=== PATIENT | male | born 1945 | race African-American/Black ===

== ENCOUNTER 2021-09-22 12:53 | Emergency (ER) | payer MEDICARE, MEDICAID ==
[~2021-09-22] VITALS: Ht 165.1 cm; Wt 59.0 kg
[~2021-09-22 12:53] MED LIST: APAP500 PO; ASPIRIN EC81 M1 PO; BACLOFEN 10 MG10 MG PO; BUSPIRONE HCL10 MG PO; CALCITRATE200 MG PO; CALCITRIOL0.25 MCG PO; CARVEDILOL12.5 MG PO; CARVEDILOL25 MG PO; COENZYME Q-1030 MG PO; COLACE 100 MG100 MG PO; FINASTERIDE5 MG PO; FLOMAX0.4 MG PO; IMDUR 30 MG TAB30 M1 PO; LATANOPROST 0.2.5 ML OPHTHALMIC; MULTIVITAMIN WITH PO; NEURONTIN100 MG PO; NITROGLYCERIN0.4 MG SUBLING; NORCO5 PO; NORVASC10 MG PO; PEPCID40 MG PO; RENAL CAPS SOFTG1 MG PO; RISPERDAL 3 MG T3 M1 PO; ROSUVASTATIN CAL5 MG PO; TAMSULOSIN HCL0.4 M1 PER TUBE; TIROSINT100 MCG PO; VELTASSA8.4 GM PO; XANAX 0.25 MG0.25 MG PO; ZANTAC 150MG T150 M1 PO; ZETIA10 MG PO
[2021-09-22 14:33] LABS: ABSOLUTE EOSINOPHILS 0.1 thou/uL (0.0-0.7); ABSOLUTE LYMPHOCYTES 0.9 thou/uL (0.8-5.3); ABSOLUTE MONOCYTES 0.6 thou/uL (0.0-1.2); ABSOLUTE NEUTROPHILS 5.1 thou/uL (1.6-8.1); BASOPHILS 0.7 %; EOSINOPHILS 1.3 %; HEMATOCRIT 23.6 % (42.0-52.0); HEMOGLOBIN 7.6 gm/dL (14.0-18.0); LYMPHOCYTES 13.3 %; MCH 27.9 pg (26.0-34.0); MCHC 32.4 g/dL (28.0-37.0); MCV 85.8 fL (80.0-100.0); MONOCYTES 8.6 %; MPV 7.1 fl. (7.2-11.1); NUCLEATED RBCS 0 /100WBC; PLATELET COUNT* 180 thou/uL (150-400); POLYS 76.1 %; RBC 2.75 mil/uL (4.50-6.00); WBC 6.7 thou/uL (4.0-11.0)
[2021-09-22 14:46] LABS: CALCIUM 8.1 mg/dL (8.5-10.1); CREATININE 6.6 mg/dL (0.6-1.3); POTASSIUM 4.5 mmol/L (3.5-5.1)
[2021-09-22 14:53] LABS: TOTAL BILIRUBIN 0.4 mg/dL (<0.1-1.0); TOTAL PROTEIN 6.8 g/dL (6.4-8.2)
[2021-09-22] MEDS ORDERED: HYDROCODON-ACE1 EAC7 PO (17:15)
[2021-09-22] MEDS ORDERED: VENTOLIN HFA 1818 GM INH (17:15)
[2021-09-22 17:21] VITALS: BP 136/70
== END 2021-09-22 17:23 | disposition left against medical advice (07) ==
LOC: M.ERS 12:53
PROVIDERS: Nurse Practitioner Family
DX: N18.6 End stage renal disease (principal); D64.89 Other specified anemias; E03.9 Hypothyroidism, unspecified; K21.9 Gastro-esophageal reflux disease without esophagitis; F41.9 Anxiety disorder, unspecified; I12.0 Hypertensive chronic kidney disease with stage 5 chronic kidney disease or end stage renal disease; E11.22 Type 2 diabetes mellitus with diabetic chronic kidney disease; Z79.899 Other long term (current) drug therapy; Z91.040 Latex allergy status; Z88.0 Allergy status to penicillin; Z88.5 Allergy status to narcotic agent

== ENCOUNTER 2021-09-22 19:17 | Emergency (ER) | payer MEDICARE, MEDICAID ==
[~2021-09-22] VITALS: Ht 165.1 cm; Wt 56.2 kg
[~2021-09-22 19:17] MED LIST changes: +HYDROCODON-ACE1 EAC7 PO; +VENTOLIN HFA 1818 GM INH
[2021-09-22 20:26] LABS: INR 1.2; PROTIME 11.8 Seconds (9.20-11.50)
[2021-09-22 23:56] VITALS: BP 115/79
== END 2021-09-22 23:58 | disposition home or self-care (01) ==
LOC: M.ERS 19:17
PROVIDERS: Personal Emergency Response Attendant
DX: I12.0 Hypertensive chronic kidney disease with stage 5 chronic kidney disease or end stage renal disease (principal); E11.22 Type 2 diabetes mellitus with diabetic chronic kidney disease; N18.6 End stage renal disease; E03.9 Hypothyroidism, unspecified; F20.89 Other schizophrenia; K21.9 Gastro-esophageal reflux disease without esophagitis; F41.9 Anxiety disorder, unspecified; Z79.899 Other long term (current) drug therapy; Z91.040 Latex allergy status; Z88.0 Allergy status to penicillin; Z88.8 Allergy status to other drugs, medicaments and biological substances